=== PATIENT | male | born 1990 | race Caucasian/White ===

== ENCOUNTER 2017-02-10 07:37 | Emergency (ER) | payer OTHER ==
[2017-02-10 07:54] VITALS: BP 114/77
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
== END 2017-02-10 08:27 | disposition home or self-care (01) ==
LOC: ER 07:37
DX: M43.6 Torticollis (principal); M54.2 Cervicalgia; M25.511 Pain in right shoulder; F17.210 Nicotine dependence, cigarettes, uncomplicated; V43.52XA Car driver injured in collision with other type car in traffic accident, initial encounter
CPT/HCPCS: 99283; L0120